=== PATIENT | male | born 1960 | race Caucasian/White ===

== ENCOUNTER 2018-08-06 16:18 | Emergency (ER) | payer SELFPAY ==
[~2018-08-06] VITALS: Ht 154.9 cm; Wt 60.8 kg
[2018-08-06 16:35] VITALS: Ht 154.9 cm; Wt 60.8 kg
[2018-08-06 17:13] VITALS: BP 113/73
== END 2018-08-06 17:13 | disposition home or self-care (01) ==
LOC: ED 16:18
DX: S00.411A Abrasion of right ear, initial encounter (principal); E11.9 Type 2 diabetes mellitus without complications; X58.XXXA Exposure to other specified factors, initial encounter; Y93.89 Activity, other specified; Y92.89 Other specified places as the place of occurrence of the external cause; Y99.8 Other external cause status

== ENCOUNTER 2019-12-10 22:04 | Emergency (ER) | payer OTHER, SELFPAY ==
[~2019-12-10] VITALS: Ht 157.5 cm; Wt 60.8 kg
[2019-12-10 22:13] VITALS: Ht 157.5 cm; Wt 60.8 kg
[2019-12-11 00:12] LABS: BASOPHIL % 0.4 % (0-2); PLATELET COUNT 164 x10^3mcL (130-400); RED CELL DISTRIBUTION WIDTH 13.4 % (11.5-14.5)
[2019-12-11 00:42] LABS: CALCIUM 9.9 mg/dL (8.5-10.1); CHLORIDE SERUM 100 mmol/L (98-107); CREATININE SERUM 0.8 mg/dL (0.7-1.3); GFR1 > 60 mL/min; GLUCOSE SERUM 94 mg/dL (74-106); POTASSIUM SERUM 3.4 mmol/L (3.5-5.1); SODIUM SERUM 136 mmol/L (136-145)
[2019-12-11 00:43] LABS: ALKALINE PHOSPHATASE 60 U/L (46-116); ALT/SGPT 257 U/L (16-63); AST/SGOT 233 U/L (15-37); BILIRUBIN TOTAL 0.6 mg/dL (0.20-1.00); TOTAL PROTEIN, SERUM 7.1 g/dL (6.4-8.2)
[2019-12-11 02:52] VITALS: BP 117/70
== END 2019-12-11 02:52 | disposition home or self-care (01) ==
LOC: ED 22:04
PROVIDERS: Emergency Medicine
DX: F17.213 Nicotine dependence, cigarettes, with withdrawal (principal); Z20.828 Contact with and (suspected) exposure to other viral communicable diseases
CPT/HCPCS: 36415; 83880; 87804; Q0092